=== PATIENT | male | born 1970 | race African-American/Black ===

== ENCOUNTER 2017-05-29 19:29 | Emergency (ER) | payer OTHER ==
[2017-05-29 19:47] VITALS: BP 156/83; PULSE 98; TEMP 97.8; BMI 36.5
--- NOTE | 2017-05-29 20:51 | PDOC ---
History of Present Illness - General Chief Complaint: Chest Pain Stated Complaint: CHEST PAIN Time Seen by Provider: 05/29/17 20:51 History Source: Patient - History of Present Illness Initial Comments: 05/29/17 21:13 CC: 1 week h/o of stabbing chest pain with exertion (lifting boxes, raising arms ) Patient is a 47 y.o. male with no PMH who presents today c/o 1 week h/o of stabbing chest pain he first noticed last Monday or Monday at work while lifting a box. Patient states the pain is "stabbing" localized to under his left breast and is relieved by Alleve and Ginseng tea. Patient denies any associated shortness of breath, diaphoresis, lightheadedness, nausea, vomiting however does note he often becomes short of breath when walking [place] the [place]. 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 Tiffani Shearer ([facility]) NKDA Past History - Past Medical History Allergies/Adverse Reactions: Allergies Allergy/AdvReac Type Severity Reaction Status Date / Time No Known Allergies Allergy Verified 05/29/17 19:30 Home Medications: Ambulatory Orders Ibuprofen [Motrin -] 600 mg PO QID #28 tablet 05/30/17 Other medical history: denies - Immunization History Immunization Up to Date: Yes - Suicide/Smoking/Psychosocial Hx Smoking History: Former smoker Have you smoked in the past 12 months: No If you are a former smoker, when did you quit?: 2010 Information on smoking cessation initiated: No *Physical Exam - Vital Signs Last Vital Signs Temp Pulse Resp BP Pulse Ox 97.8 F 98 H 20 156/83 98 05/29/17 19:30 05/29/17 19:30 05/29/17 19:30 05/29/17 19:30 05/29/17 19:30 ED Treatment Course - LABORATORY CBC & Chemistry Diagram: 05/29/17 23:00 05/29/17 23:00 Medical Decision Making - Medical Decision Making 05/29/17 21:17 Patient is a 47 y.o. male who presents with stabbing chest pain associated with lifting his arms as well as exertional dyspnea. Initial DDX includes muscle strain vs. angina. PLAN: 1. Troponin 2. CXR 05/29/17 21:19 EKG shows NSR (HR 96 BPM) with normal MN and no QTC and Q waves appreciated in V1-V3. CXR was negative for any acute process and CBC/CMP were within normal limits. CK was mildly elevated (645) likely 2/2 to muscle strain. Patient was discharged with instruction to follow up with his PCP for evaluation including referral to a block making machine operator. *DC/Admit/Observation/Transfer Diagnosis at time of Disposition: Atypical chest pain - Discharge Dispostion Disposition: HOME Condition at time of disposition: Good Admit: No - Prescriptions Prescriptions: Ibuprofen [Motrin -] 600 mg PO QID #28 tablet - Referrals Referrals: STAFF,NOT ON [Primary Care Provider] - - Patient Instructions Printed Discharge Instructions: DI for Atypical Chest Pain Additional Instructions: Please see your Primary Care Doctor at [facility] within 2-3 days for evaluation and referral to a block making machine operator for chest pain. In addition, you had an elevated blood pressure reading in the emergency department, please follow up for a recheck of your blood pressure. You can take over the counter Motrin for pain. Please return to the Emergency Department if you have any new, worsening, or concerning symptoms. - Post Discharge Activity Forms/Work/School Notes: Back to Work
[2017-05-29 23:49] LABS: BASOPHIL 0.9 % (0-2.0); EOSINOPHIL 3.5 % (0-4.5); MCH 27.5 pg (25.7-33.7); MCHC 32.7 g/dl (32.0-35.9); MEAN CELL VOLUME 83.9 fl (80-96); MEAN PLT VOLUME 7.4 fl (7.5-11.1); NEUTROPHILS 56.6 % (42.8-82.8); PLATELET COUNT 256 K/MM3 (134-434); RDW 13.8 % (11.9-15.9)
[2017-05-30 00:26] LABS: ANION GAP 6 (8-16); BILIRUBIN,TOTAL 0.7 mg/dL (0.2-1.0); CALCIUM 9.3 mg/dL (8.5-10.1); CO2 30 mmol/L (21-32); CREATININE 0.9 mg/dL (0.7-1.3); GLUCOSE,RANDOM 96 mg/dL (74-106); SGOT/AST 21 U/L (15-37); SGPT/ALT 26 U/L (12-78); TOT PROT 7.4 g/dl (6.4-8.2)
[2017-05-30 00:27] LABS: ALK PHOS 72 U/L (45-117)
[2017-05-30 00:28] LABS: CPK 645 IU/L (39-308); TROPONIN I < 0.02 ng/ml (0.00-0.05)
[2017-05-30] MEDS ORDERED: KETOROLAC TROMETHAMINE 60 MG/2 ML VIAL IM ONE (00:42)
[2017-05-30] MEDS ORDERED: KETOROLAC TROMETHAMINE 60 MG/2 ML VIAL ONE (00:45)
--- NOTE | 2017-05-30 00:48 | PDOC ---
Attending Attestation - Resident Resident Name: Felicity Gomez - ED Attending Attestation I have performed the following: I have examined & evaluated the patient, The case was reviewed & discussed with the resident, I agree w/resident's findings & plan, Exceptions are as noted - HPI HPI: 05/30/17 00:39 47yo M with no significant PMH p/w 1 week of intermittent L sided non pleuritic stabbing CP a/w lifting heavy items at work. No associated SOB, diaphoresis, N/ V. No fevers or chills. Pain improves with aleve, rest and tea with chiqui. No smoking. No family hx early cardiac disease. No recent long trips or immobilization. - Physicial Exam PE: 05/30/17 00:41 GENERAL: Awake, alert, and fully oriented, in no acute distress HEAD: No signs of trauma EYES: PERRLA, EOMI, sclera anicteric, conjunctiva clear ENT: Auricles normal inspection, hearing grossly normal, nares patent, oropharynx clear without exudates. Moist mucosa NECK: Normal ROM, supple, no lymphadenopathy, JVD, or masses LUNGS: Breath sounds equal, clear to auscultation bilaterally. No wheezes, and no crackles HEART: Regular rate and rhythm, normal S1 and S2, no murmurs, rubs or gallops. Pinpoint ttp over 5th/6th rib at the mid-clavicular line. Exacerbated when pt asked to twist. ABDOMEN: Soft, nontender, normoactive bowel sounds. No guarding, no rebound. No masses EXTREMITIES: Normal range of motion, no edema. No clubbing or cyanosis. No cords, erythema, or tenderness NEUROLOGICAL: Normal speech, cranial nerves intact, negative pronator drift, 5/ 5 strength in all 4 extremities, normal sensation to light touch in all 4 extremities, normal cerebellar exam, normal gait, normal reflexes and tone SKIN: Warm, Dry, normal turgor, no rashes or lesions noted. - Medical Decision Making 05/29/17 23:51 47-year-old male who denies past medical history presents with 1 week of intermittent left sided sharp chest pain. Vitals are unremarkable. Exam remarkable for reproducible chest pain. Heart score is 3. EKG is nonischemic.Likely musculoskeletal pain as pain improves with NSAIDs, is reproducible, and is exacerbated with heavy lifting at work. Will check a troponin to evaluate for ACS however unlikely with normal EKG and minimal risk factors. PE also a thought but patient does not meet any PERC criteria. PNA also on ddx but pt does not have cough or fever. -labs -cxr -toradol -reassess 05/30/17 00:56 Labs unremarkable with negative trop. CXR with possible atelectasis of L lung, possibly 2/2 splinting from MSK pain. Pt reports relief with toradol. Will DC to f/u with PMD within 2-3 days for referral to cardiology. I discussed the physical exam findings, ancillary test results and final diagnoses with the patient. I answered all of the patient's questions. The patient was satisfied with the care received and felt comfortable with the discharge plan and treatment plan. The patient will call their primary care physician within 24 hours to arrange follow-up and will return to the Emergency Department with any new, persistent or worsening symptoms. Heart Score/ECG Review - History History: Slightly suspicious - Electrocardiogram EKG: Non specific repolarization disturbance - Age Age: 45-65 - Risk Factors Risk Factors Heart Score: Yes Hx Obesity Based on the list above the patient has:: 1-2 risk factors - Troponin Troponin: </= normal limit - Score Heart Score - Total: 3 #1 05/30/17 00:50 NSR, rate 96, normal axis and intervals, no OJ. Isolated TWI lead III
[2017-05-30] MEDS ORDERED: KETOROLAC TROMETHAMINE 30 MG/1 ML VIAL ONE (00:57)
[2017-05-30] MEDS ORDERED: KETOROLAC TROMETHAMINE 60 MG/2 ML VIAL IVPUSH ONE (01:04)
[2017-05-30] MEDS ORDERED: ONDANSETRON 4 MG/2 ML VIAL IVPUSH ONE (01:24)
--- NOTE | 2017-06-06 09:50 | EKG ---
Test Reason : Blood Pressure : / mmHG Vent. Rate : 096 BPM Atrial Rate : 096 BPM P-R Int : 128 ms QRS Dur : 074 ms QT Int : 322 ms P-R-T Axes : 073 083 018 degrees QTc Int : 406 ms NORMAL SINUS RHYTHM CANNOT RULE OUT SEPTAL INFARCT , AGE UNDETERMINED ABNORMAL ECG NO PREVIOUS ECGS AVAILABLE Confirmed by KT MENDOZA MD ([id number]) on 06/06/2017 9:49:46 AM Referred By: Confirmed By:KT MENDOZA MD
== END 2017-05-30 02:16 | disposition home or self-care (01) ==
LOC: JER 19:29
PROC: 3E033GC Introduction of Other Therapeutic Substance into Peripheral Vein, Percutaneous Approach (ICD-10-PCS; principal; 2017-05-29)
DX: R07.89 Other chest pain (principal); X50.0XXA Overexertion from strenuous movement or load, initial encounter; Y93.89 Activity, other specified; Y92.69 Other specified industrial and construction area as the place of occurrence of the external cause; Y99.0 Civilian activity done for income or pay
CPT/HCPCS: 36415; 71020-TC; 80053; 82553; 84484; 85025; 93005; 93010; 96374; 99281-25